=== PATIENT | male | born 1965 | race Caucasian/White ===

== ENCOUNTER 2017-11-13 08:35 | Observation (INO) | payer MEDICAID, SELFPAY ==
[2017-11-13] VITALS (10 sets, daily range): BP systolic 93–115; BP diastolic 51–78; PULSE 71–93; RESP 12–18; TEMP 36.4–36.6; O2SAT 96–99; BMI 20.6; BMI 20.4
--- NOTE | 2017-11-13 08:44 | EKG12_ITS ---
Test Reason : GEN ILLNESS Blood Pressure : / mmHG Vent. Rate : 079 BPM Atrial Rate : 079 BPM P-R Int : 164 ms QRS Dur : 092 ms QT Int : 388 ms P-R-T Axes : 053 -52 049 degrees QTc Int : 444 ms Normal sinus rhythm Left anterior fascicular block Abnormal ECG Confirmed by ERVIN THEODORE, DELVIN ([id number]), loan expeditor JOELLE GUERRA ([id number]) on 11/16/2017 2:45:47 PM Referred By: APPLE Confirmed By:DELVIN MUELLER MD
--- NOTE | 2017-11-13 08:45 | RAD_ITS ---
STUDY: X-RAY CHEST REASON FOR EXAM: Male, 51 years old. Focus of breath. Unexplained weight loss. Diarrhea. TECHNIQUE: PA and lateral views of the chest. COMPARISON: None. FINDINGS: EKG electrodes are seen. Hyperinflation. The lungs are clear. There is no demonstrated pleural abnormality. Normal size heart. Normal mediastinum and riddhi. Normal visualized pulmonary arteries. Normal visualized aortic arch and descending thoracic aorta. There are mild degenerative changes of the visualized thoracic spine. Normal visualized ribs, clavicles, and shoulders. There is no demonstrated abnormality of the visualized soft tissue structures of the upper abdomen. RAD/Chest PA and Lateral IMPRESSION: Hyperinflation. Electronically Signed: Sea Brush MD at 9:26 EST Tel [phone], Service support ,
--- NOTE | 2017-11-13 08:50 | NURSING ---
NO OLD EKGS
--- NOTE | 2017-11-13 08:54 | ED.DCSUM_ITS ---
- ER Visit Summary Date of Service: 11/13/17 Chief Complaint: Dyspnea with activity and diarrhea with 11 pound weight loss History of Present Illness: The patient is a 51 M who has a past medical history of diabetes for 5-6 years and quit smoking 1 month ago. He started smoking at the age of 21. He smoked 1 pack per day. He reports shortness of breath with activity. Upon further questioning was determined he has midsternal chest pressure with radiation at times the right shoulder at times of both shoulders at times to the left shoulder. This is with activity at work. He does become short of breath. A couple of minutes after he stops the activity his chest pressure is gone and his dyspnea resolved. He denies nausea or vomiting with the chest discomfort or associated with the diarrhea. He has not seen a doctor in quite some time. He was prescribed metformin last ER visit. He is no longer on insulin. He has not checked his blood sugar in several days. He also complains of diarrhea that started 3 days ago. On the first day he had 12 loose stools and yesterday he had 8 loose stools with mucus no blood. Today he is only had one bowel movement. He has no history of inflammatory bowel disorder and there is no family history of inflammatory bowel disorder. He denies any exposure to any one ill with GI symptoms. He does report dry mouth, thirst and lightheadedness. He does report decreased urine output. He reports an 11 pound weight loss. He states his clothes are loose on him. He denies fever, chills night sweats. He denies any ocular, visual or auditory symptoms. He denies any myalgias arthralgias. He denies any skin lesion. He denies history of bruising easily or rash. He gives no immunologic symptoms. He denies headache, paresthesia, anesthesia, motor weakness or problems with balance. Physical Examination: Vital signs are unremarkable. He is a thin appearing gentleman. Head is atraumatic normocephalic. Pupils are equal round reactive. Extraocular muscles are intact. TMs are pearly white with landmarks noted. Nares patent with no drainage. Posterior pharynx without erythema or exudate. Uvula is midline. There is no dysphonia or dysphasia. Trachea is midline. There is no stridor with auscultation of the neck. Heart is regular without murmur, gallop or rub. S1 and S2 are normal. Lungs are clear to auscultation with good movement of air bilaterally. Abdomen is soft scaphoid nontender with diminished bowel sounds. There is no asymmetry, swelling, discoloration, leg vein distention, palpable cords or tenderness along the distribution of the deep venous system. Patient is alert and oriented ?3. Motor is 5 over 5. Sensory is intact. DTRs are symmetric with no clonus or Babinski sign. Cranial 2 through 12 are intact. Cerebellar testing is normal. Test Results: KG without pain reveals a sinus rhythm rate of 79 and is essentially unremarkable. Chest x-ray is unremarkable. 2 views were obtained and interpreted by me. CBC is unremarkable. BMP is remarkable for slight elevation of glucose of 134. Troponin 0 0.03. Emergency Department Course and Treatment: Since patient has history of diabetes and smoking and describes exertional dyspnea and chest pain with referral to right shoulder as well as both shoulders cardiac workup was undertaken and included an EKG, chest x-ray and appropriate blood work. He did receive aspirin. In my professional medical opinion his GI symptoms have improved markedly and did not believe any further testing is warranted through the emergency department. Treatment Plan: Once labs are back will speak with cardiology since patient is describing exertional angina for the past 1-2 weeks and since he reports radiation to the right shoulder as well as both shoulders odds ratio for cardiac disease is 3-1 and 9-1 respectively. Based on karolina criteria patient has high likelihood for cardiac disease Disposition: As discussed with Dr. Whitman. The hospitalist has been paged. Impression: 1. Classic exertional midsternal chest pain 2. History of diabetes, hyperglycemia 3. Former tobacco use 4. Diarrhea with weight loss, acute This note was generated with [employer] software. It may contain incorrect words, spelling, and punctuation that were not noted in review of the chart prior to signing ED Disposition - Plan for ED Patient: Chief Complaint: General Illness Referrals: Care Physician,No Primary [Primary Care Provider] -
[2017-11-13] MEDS: Aspirin 81 MG TAB.CHEW 324 MG PO (09:06)
[2017-11-13 09:09] LABS: Absolute Lymphocyte Count 1.06 X10^3/ul (0.83-4.51); Absolute Neutrophil Count 5.7 X10^3/uL (2.0-7.7); Basophil# 0.02 X10^3/uL; Basophil% 0.3 % (0-1); Eosinophil# 0.15 X10^3/uL; Hematocrit 41.3 % (40-54); Hemoglobin 14.6 g/dl (13.0-16.5); Lymphocyte # 1.06 X10^3/ul (4.0); Mean Corp Hgb Conc 35.4 g/gl (32-36); Mean Corpuscular Hgb 30.7 pg (27.0-32.0); Mean Corpuscular Volume 86.8 fL (80-94); Mean Platelet Vol. 8.6 fl (6.2-12.0); Monocyte# 0.62 X10^3/uL; Monocyte% 8.2 % (0-10); Neutrophil # 5.72 X10^3/uL (2.7-7.7); Neutrophil % 75.4 % (47-70); Platelet Count 166 K/mm3 (150-450); RBC Distribution Width CV 12.4 % (11.6-14.6); RBC Distribution Width SD 39.3 fl (35.1-43.9); Red Blood Count 4.76 M/mm3 (4.6-6.2); White Blood Count 7.6 K/mm3 (4.4-11.0)
[2017-11-13 09:10] LABS: POSITIVE COUNT NO; POSITIVE DIFFERENTIAL NO; POSITIVE MORPHOLOGY NO
[2017-11-13 09:26] LABS: Anion Gap 7 (5-15); BUN 18 mg/dL (7-18); BUN/Creat Ratio 21.4 RATIO (10-20); Chloride 102 mmol/L (98-107); Creatinine, Serum 0.84 mg/dL (0.70-1.30); EST Glomerular Filtration Rate 102 mL/min (>60); Est Glom Filt Rate - Afr Amer 124 mL/min (>60); Estimated Creatinine Clearance 97.17 ml/min; Glucose 134 mg/dL (74-106); Sodium Level 137 mmol/L (136-145)
--- NOTE | 2017-11-13 09:28 | NURSING ---
DR PETERS IN WITH PATIENT
--- NOTE | 2017-11-13 11:09 | PCM.CONS.C ---
Problem List (1) Chest pain Status: Acute (2) Diabetes Status: Acute (3) Tobacco abuse Status: Acute Reason for Consult Date of Consultation: 11/13/17 Reason for Consultation: Chest pain, diabetes, tobacco abuse, History of Present Illness: The patient is a 51 year old M, with a history of diabetes, hypertension, unknown cholesterol on no current cholesterol medications, [id number] smoker who quit about 1 month ago, previous heavy drinker quit several months ago, who was normal health up until around Sunday when he went to [place] get[place] chicken and then subsequently developed copious amounts of frequent diarrhea over the last several days. 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 The pain radiated sometimes to his left shoulder and sometimes to bilateral shoulders. Patient continued to have copious amounts of diarrhea every few minutes, and sought medical attention at [facility] ER for lightheadedness and dizziness as well as his chest pain. Initial EKG showed normal sinus rhythm with low voltage in the limb leads, left axis deviation, no acute ST segment changes. His initial troponin was negative. Initially his blood pressure was 115/74, and heart rate was 80 and regular. 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 Initial troponin has been negative thus far. He is currently chest pain-free. He has no positive family history of premature coronary artery disease. Patient has never had a stress test or a heart catheterization. He denies any Viagra or Cialis, or illicit substances. [] Past Medical History Allergies/Adverse Reactions: Allergies bee venom protein (honey bee) Allergy (Verified 11/13/17 08:37) Hives Home Medications: Ambulatory Orders Medication Instructions Recorded NK [NK] 11/13/17 Surgical History: no surgical history Smoking Status: Former smoker Review of Systems - Review of Systems General: Reports: Fever, Weakness, Weight Loss. Denies: Fatigue, Night Sweats Cardiovascular: Reports: Chest Discomfort, Chest Discomfort with Exertion, Chest Tightness, Chest Heaviness, Shortness of Breath with Exertion. Denies: Shortness of Breath, Orthopnea, PND, Peripheral Edema, Palpitations, Lightheadedness, Dizziness, Near Syncope, Syncope Respiratory: Denies: Cough, Sputum Production, Hemoptysis Gastrointestinal: Reports: Diarrhea. Denies: Hematemesis, Hematochezia, Melena Genitourinary: Denies: Dysuria, Hematuria Skin: Denies: Rash Subjectve: Patient laying in bed, no acute distress. Objective: Vital Signs Temp Pulse Resp BP Pulse Ox 97.9 F 71 18 111/78 98 11/13/17 08:36 11/13/17 11:00 11/13/17 11:00 11/13/17 11:00 11/13/17 11:00 General: Awake, Alert, Oriented x 3 HEENT: PERRL, EOMI, Sclera Non Icteric Neck: Supple, Good ROM, No Lymph Node Enlargement Lungs: Clear to auscultation Cardiovascular: Regular Rhythm, Normal S1, Normal S2, No Murmurs, No Rubs, No Gallops Vascular: No Carotid Bruits, Normal Femoral Pulses, Normal Radial Pulses, Normal Dorsalis Pedal Pulse, Normal Posterior Tibial Pulses Abdomen: Bowel Sounds Present, Soft, Non Tender, No HSM, No Organomegaly Extremities: No Cyanosis, No Clubbing, No edema Neurological: No Focal Motor or Sensory Deficit Rhythm: EKG: As above ECHO: Pending Stress Test: Pending Cardiac Cath: PCI: CT Surgery: Holter monitor: EPS: PPM: CXR: Chest CT Scan: Assessment/Plan 1. Chest pain: Patient is chest pain is not reproducible and has several characteristics of classic anginal symptoms including its recent onset, exertional nature, radiation to his arms, and associated shortness of breath combined with the risk factors of diabetes, age, hypertension, and previous smoking. His initial troponin is negative and his EKG has no significant ST segment changes at this time. At this point I would recommend baby aspirin 81 mg daily, admit to telemetry, rule out for myocardial infarction with troponins every 4 hours ?3, and if negative would proceed with treadmill echocardiogram tomorrow morning. If his troponins are abnormal or if his stress test is abnormal, he will require a diagnostic coronary angiogram. This will need to be performed after his diarrhea has resolved. Would recommend obtaining Shigella, Salmonella fecal tox screens given the new onset diarrhea after going to a restaurant establishment. If the patient requires diagnostic coronary angiogram would recommend loading the patient with Plavix 3 mg ?1 followed by 75 mg a day. In addition recommend a 2D echo with Doppler to determine if the patient has any wall motion abnormalities or pulmonary hypertension. Once the patient has been fluid resuscitated would consider Lopressor 12.5 mg p.o. twice daily for heart rate and blood pressure control. 2. Hyperlipidemia: Recommend obtaining a fasting lipid profile. Given the patient's diabetes requires an LDL less than 70. 3. Thank you very much for the opportunity to participate in the cardiac care of your patient. Consultation time took place between 9 AM and 9:30 AM. Code Visit Inpatient E&M: 58965 Init Hosp L2
--- NOTE | 2017-11-13 11:21 | CON.PCM_ITS ---
Problem List (1) Chest pain Status: Acute (2) Diabetes Status: Acute (3) Tobacco abuse Status: Acute Reason for Consult Date of Consultation: 11/13/17 Reason for Consultation: Chest pain, diabetes, tobacco abuse, History of Present Illness: The patient is a 51 year old M, with a history of diabetes, hypertension, unknown cholesterol on no current cholesterol medications, [id number] smoker who quit about 1 month ago, previous heavy drinker quit several months ago, who was normal health up until around Sunday when he went to [place] [employer] and then subsequently developed copious amounts of frequent diarrhea over the last several days. 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 The pain radiated sometimes to his left shoulder and sometimes to bilateral shoulders. Patient continued to have copious amounts of diarrhea every few minutes, and sought medical attention at [facility] ER for lightheadedness and dizziness as well as his chest pain. Initial EKG showed normal sinus rhythm with low voltage in the limb leads, left axis deviation, no acute ST segment changes. His initial troponin was negative. Initially his blood pressure was 115/74, and heart rate was 80 and regular. 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 Initial troponin has been negative thus far. He is currently chest pain-free. He has no positive family history of premature coronary artery disease. Patient has never had a stress test or a heart catheterization. He denies any Viagra or Cialis, or illicit substances. [] Past Medical History Allergies/Adverse Reactions: Allergies bee venom protein (honey bee) Allergy (Verified 11/13/17 08:37) Hives Home Medications: Ambulatory Orders Medication Instructions Recorded NK [NK] 11/13/17 Surgical History: no surgical history Smoking Status: Former smoker Review of Systems - Review of Systems General: Reports: Fever, Weakness, Weight Loss. Denies: Fatigue, Night Sweats Cardiovascular: Reports: Chest Discomfort, Chest Discomfort with Exertion, Chest Tightness, Chest Heaviness, Shortness of Breath with Exertion. Denies: Shortness of Breath, Orthopnea, PND, Peripheral Edema, Palpitations, Lightheadedness, Dizziness, Near Syncope, Syncope Respiratory: Denies: Cough, Sputum Production, Hemoptysis Gastrointestinal: Reports: Diarrhea. Denies: Hematemesis, Hematochezia, Melena Genitourinary: Denies: Dysuria, Hematuria Skin: Denies: Rash Subjectve: Patient laying in bed, no acute distress. Objective: Vital Signs Temp Pulse Resp BP Pulse Ox 97.9 F 71 18 111/78 98 11/13/17 08:36 11/13/17 11:00 11/13/17 11:00 11/13/17 11:00 11/13/17 11:00 General: Awake, Alert, Oriented x 3 HEENT: PERRL, EOMI, Sclera Non Icteric Neck: Supple, Good ROM, No Lymph Node Enlargement Lungs: Clear to auscultation Cardiovascular: Regular Rhythm, Normal S1, Normal S2, No Murmurs, No Rubs, No Gallops Vascular: No Carotid Bruits, Normal Femoral Pulses, Normal Radial Pulses, Normal Dorsalis Pedal Pulse, Normal Posterior Tibial Pulses Abdomen: Bowel Sounds Present, Soft, Non Tender, No HSM, No Organomegaly Extremities: No Cyanosis, No Clubbing, No edema Neurological: No Focal Motor or Sensory Deficit Rhythm: EKG: As above ECHO: Pending Stress Test: Pending Cardiac Cath: PCI: CT Surgery: Holter monitor: EPS: PPM: CXR: Chest CT Scan: Assessment/Plan 1. Chest pain: Patient is chest pain is not reproducible and has several characteristics of classic anginal symptoms including its recent onset, exertional nature, radiation to his arms, and associated shortness of breath combined with the risk factors of diabetes, age, hypertension, and previous smoking. His initial troponin is negative and his EKG has no significant ST segment changes at this time. At this point I would recommend baby aspirin 81 mg daily, admit to telemetry, rule out for myocardial infarction with troponins every 4 hours ?3, and if negative would proceed with treadmill echocardiogram tomorrow morning. If his troponins are abnormal or if his stress test is abnormal, he will require a diagnostic coronary angiogram. This will need to be performed after his diarrhea has resolved. Would recommend obtaining Shigella, Salmonella fecal tox screens given the new onset diarrhea after going to a restaurant establishment. If the patient requires diagnostic coronary angiogram would recommend loading the patient with Plavix 3 mg ?1 followed by 75 mg a day. In addition recommend a 2D echo with Doppler to determine if the patient has any wall motion abnormalities or pulmonary hypertension. Once the patient has been fluid resuscitated would consider Lopressor 12.5 mg p.o. twice daily for heart rate and blood pressure control. 2. Hyperlipidemia: Recommend obtaining a fasting lipid profile. Given the patient's diabetes requires an LDL less than 70. 3. Thank you very much for the opportunity to participate in the cardiac care of your patient. Consultation time took place between 9 AM and 9:30 AM. Code Visit Inpatient E&M: 80937 Init Hosp L2
--- NOTE | 2017-11-13 12:50 | HP.PCM_ITS ---
Problem List (1) Chest pain Status: Acute (2) Diabetes Status: Acute (3) Tobacco abuse Status: Acute History of Present Illness Date of Admission: 11/13/17 Chief Complaint: Weakness, Diarrhea and Dyspnea The patient is a 51 year old M to the emergency room due to weakness, he has had profuse diarrhea last 3 days. He thought that he had the flu and decided to come to the emergency room. He denies any nasal congestion, rhinorrhea , cough, fever or chills. He reports exertional dyspnea and chest discomfort while he was at work. He was evaluated in the emergency room and admitted to PCU for his concerning cardiac symptoms. When I saw him ,he was alert and oriented to time place and person, he denied any chest pain , shortness of breath or palpitations at rest. Past Medical History Allergies bee venom protein (honey bee) Allergy (Verified 11/13/17 08:37) Hives Home Medications: Ambulatory Orders Medication Instructions Recorded NK [NK] 11/13/17 Surgical History: no surgical history Smoking Status: Former smoker - *Family History Maternal History Items: No pertinent history Review of Systems Comment: All Systems were reviewed with pertinent positives mentioned in the HPI above. VTE Information - Inpt Only VTE Present on Admission: No VTE Mechan Device Prophylaxis: SCD's VTE Pharm Prophylaxis ordered?: No Patient Problems: Active and Suspected Problems Chest pain (Acute) Diabetes (Acute) Tobacco abuse (Acute) - Physical Exam General: Alert, Oriented x3 Neck: Supple, No JVD Lungs: Clear to auscultation Cardiovascular: Regular rate, Normal S1, Normal S2, No murmurs, No Ectopic Activity Abdomen: Bowel Sounds Present, Soft, Non Tender, Non-Distended Vital Signs Temp Pulse Resp BP Pulse Ox 97.5 F L 75 12 107/69 99 11/13/17 11:40 11/13/17 11:40 11/13/17 11:40 11/13/17 11:40 11/13/17 11:40 Oxygen Delivery Method Room Air Weight: 64.6 kg Body Mass Index (BMI) 20.4 Assessment/Plan Active and Suspected Problems Chest pain (Acute) Diabetes (Acute) Tobacco abuse (Acute) 1. Chest pain and exertional dyspnea; he has been seen by cardiology and stress echocardiogram ordered for tomorrow. Continue to check serial cardiac enzymes. 2. Diarrhea; We will obtain stool for C. difficile 3. Dehydration secondary to #2; we will place him on on gentle hydration with 0.9NS. 4. DVT prophylaxis with Lovenox. Code Visit Inpatient E&M: 55947 Subs Hosp L2 OBSV E&M: 72457 Initial observation care L3
[2017-11-13 13:06] LABS: Magnesium 2.1 mg/dL (1.6-2.6)
[2017-11-13] MEDS: 0.9% Normal Saline 1,000 ML 75 ML IV (15:13)
[2017-11-13] MEDS: 0.9% NaCl Peripheral Flush Adult/Peds IV (15:14)
[2017-11-13] MEDS: Glucerna Shake 120 ML LIQUID PO ×2 (17:32→21:45)
[2017-11-14] VITALS (8 sets, daily range): BP systolic 96–108; BP diastolic 64–68; PULSE 66–87; RESP 16–18; TEMP 36.6–37.1; O2SAT 96–99
[2017-11-14] MEDS: 0.9% Normal Saline 1,000 ML 75 ML IV ×2 (04:31→21:32)
[2017-11-14 05:33] LABS: International Normalized Ratio 1.1; Prothrombin Time (Protime)PT. 14.1 SECONDS (11.7-14.9)
[2017-11-14 05:34] LABS: Partial Thromboplast Time 31.3 Seconds (24.1-36.2)
[2017-11-14 05:35] LABS: Absolute Lymphocyte Count 1.67 X10^3/ul (0.83-4.51); Absolute Neutrophil Count 3.3 X10^3/uL (2.0-7.7); Basophil# 0.02 X10^3/uL; Basophil% 0.3 % (0-1); Eosinophil# 0.27 X10^3/uL; Eosinophils% 4.4 % (0-5); Hematocrit 35.8 % (40-54); Hemoglobin 12.7 g/dl (13.0-16.5); Lymphocyte # 1.67 X10^3/ul (4.0); Lymphocyte % 27.4 % (19-41); Mean Corp Hgb Conc 35.5 g/gl (32-36); Mean Corpuscular Hgb 30.7 pg (27.0-32.0); Mean Corpuscular Volume 86.5 fL (80-94); Mean Platelet Vol. 8.8 fl (6.2-12.0); Monocyte# 0.83 X10^3/uL; Monocyte% 13.6 % (0-10); Neutrophil % 54.3 % (47-70); POSITIVE COUNT NO; POSITIVE DIFFERENTIAL NO; POSITIVE MORPHOLOGY NO; Platelet Count 162 K/mm3 (150-450); RBC Distribution Width CV 12.3 % (11.6-14.6); RBC Distribution Width SD 37.7 fl (35.1-43.9); Red Blood Count 4.14 M/mm3 (4.6-6.2); White Blood Count 6.1 K/mm3 (4.4-11.0)
[2017-11-14 05:41] LABS: BUN 16 mg/dL (7-18); BUN/Creat Ratio 27.6 RATIO (10-20); Calcium,Total 8.3 mg/dL (8.5-10.1); Chloride 106 mmol/L (98-107); Cholesterol 82 mg/dL (200); Creatinine, Serum 0.58 mg/dL (0.70-1.30); EST Glomerular Filtration Rate 157 mL/min (>60); Est Glom Filt Rate - Afr Amer 190 mL/min (>60); Estimated Creatinine Clearance 139.22 ml/min; Glucose 125 mg/dL (74-106); Potassium 3.9 mmol/L (3.5-5.1); Sodium Level 141 mmol/L (136-145); Triglycerides 92 mg/dL
[2017-11-14 05:42] LABS: Anion Gap 9 (5-15); High Density Lipoprotein 39 mg/dL; Very Low Density Lipoprotein 18 mg/dL (5-40)
--- NOTE | 2017-11-14 05:55 | STEWCON_ITS ---
Reason For Study: CHEST PAIN Stress Results Protocol: Robert Protocol Maximum Predicted HR: 170 bpm Target HR: 145 bpm% Max imum Predicted HR: 90 % DurationHeart Rate Stage (mm:ss) (bpm) BP BASELINE 76 110/78 STAGE 1 3:00 10 8 110/60 STAGE 2 3:00 11 8 114/60 STAGE 3 3:00 12 6 122/64 STAGE 4 2:00 15 3 / RECOVERY 105 110/6 6 Stress Duration: 11:00 mm:ss Maximum Stress HR: 153 bpm Baseline Echocardiogram Findings The estimated ejection fraction is 65 %. Stress Echo Wall motion Data Resting WMIntermediate WMStress WM Resting Wall Motion Wall Motion Stress No regional wall motion No regional wall motion abnormalities noted. abnormalities noted. EKG Data Normal intervals are noted. The patient exercised according to the regular Robert protocol for a total duration of 11:00. The maximum heart rate attained was 166 beats per minute. This was 97% of maximum predicted heart rate. The patient exercised into stage 4 of the Robert protocol. During stress, there were no ST or T wave changes noted to suggest ischemia. No clinical angina was noted. No arrhythmias noted. Interpretation Summary The estimated ejection fraction is 65 %. Normal adequate treadmill echocardiogram. Negative for ischemia by EKG and echocardiographic criteria. No anginal symptoms noted. No arrhythmias noted. Appropriate blood pressure response to exercise. Average exercise capacity for age. Test terminated due to fatigue, dyspnea and target heart rate achieved. Final LVEF is 75%. Patient tolerated procedure well. No complications. Ordering Physician: Te Whitman Performed By: Toyin Navarro, GONZÁLEZ, RVT
--- NOTE | 2017-11-14 05:55 | EKG12_ITS ---
Test Reason : AM EKG Blood Pressure : / mmHG Vent. Rate : 071 BPM Atrial Rate : 071 BPM P-R Int : 198 ms QRS Dur : 102 ms QT Int : 418 ms P-R-T Axes : 056 -19 064 degrees QTc Int : 454 ms Normal sinus rhythm Normal ECG When compared with ECG of 13-NOV-2017 08:55, MANUAL COMPARISON REQUIRED, DATA IS UNCONFIRMED Confirmed by ERVIN THEODORE, DELVIN ([id number]), assistant film editor JOELLE GUERRA ([id number]) on 11/16/2017 3:16:01 PM Referred By: SUPA Confirmed By:DELVIN MUELLER MD
[2017-11-14] MEDS: Aspirin 81 MG TAB.CHEW PO (06:07)
--- NOTE | 2017-11-14 08:54 | PCM.PN.CARD ---
Subjectve: Patient doing better this morning, diarrhea has ceased, no chest pain symptoms. Troponins negative ?3. EKG this morning is unchanged from baseline. Telemetry negative. Objective: Vital Signs Temp Pulse Resp BP Pulse Ox 97.9 F 77 18 106/66 96 11/14/17 08:27 11/14/17 08:27 11/14/17 08:27 11/14/17 08:27 11/14/17 08:27 Oxygen Delivery Method Room Air Weight: 142 lb 6.698 oz Body Mass Index (BMI) 20.4 Intake and Output for Last 24 Hours 11/12/17 11/13/17 11/14/17 23:59 23:59 23:59 Intake Total 1020 / 1020 466 / 466 Balance 1020 / 1020 466 / 466 General: Awake, Alert, Oriented x 3 HEENT: PERRL, EOMI, Sclera Non Icteric Neck: Supple, Good ROM, No Lymph Node Enlargement Lungs: Clear to auscultation Cardiovascular: Regular Rhythm, Normal S1, Normal S2, No Murmurs, No Rubs, No Gallops Vascular: No Carotid Bruits, Normal Femoral Pulses, Normal Radial Pulses, Normal Dorsalis Pedal Pulse, Normal Posterior Tibial Pulses Abdomen: Bowel Sounds Present, Soft, Non Tender, No HSM, No Organomegaly Extremities: No Cyanosis, No Clubbing, No edema Neurological: No Focal Motor or Sensory Deficit 11/13/17 13:10: Troponin I < 0.02 11/13/17 17:00: Troponin I < 0.02 11/13/17 23:17: Troponin I < 0.02 11/14/17 05:08: Sodium 141, Potassium 3.9, Chloride 106, Carbon Dioxide 26.0, Anion Gap 9, BUN 16, Creatinine 0.58 L, Est GFR (MDRD) Af Amer 190, Est GFR (MDRD) Non-Af 157, BUN/Creatinine Ratio 27.6 H, Glucose 125 H, Calcium 8.3 L, Triglycerides 92, Cholesterol 82, LDL Cholesterol 25, VLDL Cholesterol 18, HDL Cholesterol 39 L 11/14/17 05:08: WBC 6.1, RBC 4.14 L, Hgb 12.7 L, Hct 35.8 L, MCV 86.5, MCH 30.7, MCHC 35.5, RDW 12.3, RDW Differential 37.7, Plt Count 162, MPV 8.8, Immature Gran % (Auto) 0.000, Neut % (Auto) 54.3, Lymph % (Auto) 27.4, [place] % (Auto) 13.6 H, Eos % (Auto) 4.4, Baso % (Auto) 0.3, Absolute Neuts (auto) 3.3, Total Counted Not Reportable 11/14/17 05:08: PT 14.1, INR 1.1, APTT 31.3 Rhythm: EKG: ECHO: Stress Test: Pending Cardiac Cath: PCI: CT Surgery: Holter monitor: EPS: PPM: CXR: Chest CT Scan: Assessment/Plan 1. Chest pain: Patient is chest pain is not reproducible and has several characteristics of classic anginal symptoms including its recent onset, exertional nature, radiation to his arms, and associated shortness of breath combined with the risk factors of diabetes, age, hypertension, and previous smoking. His initial troponin is negative and his EKG has no significant ST segment changes at this time. Patient's troponin has been negative thus far, and he will proceed with stress echocardiogram this morning assuming he is cleared from a contact precaution standpoint. If his stress test is grossly abnormal, would recommend a diagnostic coronary angiogram. If his stress test is normal, he will proceed with medical management going forward. If the patient requires diagnostic coronary angiogram would recommend loading the patient with Plavix 3 mg ?1 followed by 75 mg a day. In addition recommend a 2D echo with Doppler to determine if the patient has any wall motion abnormalities or pulmonary hypertension. Patient is a major concern about his most recent acute weight loss over the last several weeks to months, would recommend GI consultation, and checking TSH and T4 to rule out hypothyroidism. 2. Hyperlipidemia: Given the patient's diabetes requires an LDL less than 70. LDL is 25 HDL 39. 3. Thank you very much for the opportunity to participate in the cardiac care of your patient. Code Visit Inpatient E&M: 95533 Subs Hosp L2
[2017-11-14 09:36] LABS: Thyroid Stim Hormone (TSH) 2.43 uIU/mL (0.358-3.74)
--- NOTE | 2017-11-14 11:17 | CASEMGMT ---
Patient is showing up as self pay. MARIE met with patient, introduced self and role at [facility]. Patient said has insurance. MARIE told him his Medicaid is showing up as inactive currently. MARIE gave him the phone number to [employer] [facility] [employer] [facility]. MARIE told him that it could be something as simple as they need some updated information. He thanked MARIE for this information. Rachna HOWARD MSW
--- NOTE | 2017-11-14 11:32 | PN_ITS ---
Patient Problems: Active and Suspected Problems Chest pain (Acute) Diabetes (Acute) Tobacco abuse (Acute) Subjective: CC: Diarrhea, weakness and chest pain He has had profuse diarrhea today, he reports no abdominal pain , fever or chills. His C. difficile status is negative. Stress test today is negative for ischemia. Vitals/I&O's: Vital Signs Temp Pulse Resp BP Pulse Ox 97.9 F 77 18 106/66 96 11/14/17 08:27 11/14/17 08:27 11/14/17 08:27 11/14/17 08:27 11/14/17 08:27 Oxygen Delivery Method Room Air Weight: 64.6 kg Body Mass Index (BMI) 20.4 Intake and Output for Last 24 Hours 11/12/17 11/13/17 11/14/17 23:59 23:59 23:59 Intake Total 1020 / 1020 466 / 466 Balance 1020 / 1020 466 / 466 General: Alert, Oriented x3 Oral: Moist Mucosa Neck: Supple Lungs: Clear to auscultation Cardiovascular: Regular rate, Normal S1, Normal S2 Abdomen: Bowel Sounds Present, Non Tender, Non-Distended Extremities: No edema Neurological: Cranial nerves II-XII grossly intact, Motor Exam 5/5 strength throughout Microbiology Past 72 Hours 11/14/17 10:17 Stool Stool Lactoferrin - Final Laboratory Results 11/13/17 13:10: Troponin I < 0.02 11/13/17 17:00: Troponin I < 0.02 11/13/17 23:17: Troponin I < 0.02 11/14/17 05:08: Sodium 141, Potassium 3.9, Chloride 106, Carbon Dioxide 26.0, Anion Gap 9, BUN 16, Creatinine 0.58 L, Estim Creat Clear Calc 139.22, Est GFR ( MDRD) Af Amer 190, Est GFR (MDRD) Non-Af 157, BUN/Creatinine Ratio 27.6 H, Glucose 125 H, Calcium 8.3 L, Triglycerides 92, Cholesterol 82, LDL Cholesterol 25, VLDL Cholesterol 18, HDL Cholesterol 39 L 11/14/17 05:08: WBC 6.1, RBC 4.14 L, Hgb 12.7 L, Hct 35.8 L, MCV 86.5, MCH 30.7 , MCHC 35.5, RDW 12.3, RDW Differential 37.7, Plt Count 162, MPV 8.8, Immature Gran % (Auto) 0.000, Neut % (Auto) 54.3, Lymph % (Auto) 27.4, [place] % (Auto) 13.6 H, Eos % (Auto) 4.4, Baso % (Auto) 0.3, Absolute Neuts (auto) 3.3, Absolute Lymphs (auto) 1.67, Total Counted Not Reportable 11/14/17 05:08: PT 14.1, INR 1.1, APTT 31.3 11/14/17 05:08: TSH 2.43, Free T4 1.00 Current Medications Aspirin (Aspirin, Baby) 81 mg PO DAILY@0800 [facility] Last Admin: 11/14/17 06:07 Dose: 81 mg Sodium Chloride () 1,000 mls @ 75 mls/hr IV .[id number] [facility] Last Admin: 11/14/17 04:31 Dose: 75 mls/hr Nutritional Formula (Lactose Free) (Glucerna Shake) 120 ml PO 4X/DAY [facility] Last Admin: 11/14/17 10:05 Dose: Not Given Sodium Chloride () 5 - 30 ml IV UD PRN PRN Reason: SALINE FLUSH Last Admin: 11/13/17 15:14 Dose: 5 ml Assessment/Plan Active and Suspected Problems Chest pain (Acute) Diabetes (Acute) Tobacco abuse (Acute) 1. Chest pain and exertional dyspnea; this is negative for ischemia. 2. Persistent Diarrhea; stool for C. difficile is negative, 3. Weight loss; given his unexplained diarrhea we will obtain CT scan of the abdomen and pelvis. 4. Dehydration secondary to #2; we will continue on gentle hydration with 0.9NS. 5. DVT prophylaxis with Lovenox. Code Visit OBSV E&M: 12710 Subsequent observation care L3
--- NOTE | 2017-11-14 14:55 | NURSING ---
1430- updated [place] fisheries manager and Charge Nurse Natalie COOK regarding pt stating he feels like he is being poisoned and that when he eats he feels as if his finger and toe tips are going to blow off.
--- NOTE | 2017-11-14 15:33 | CASEMGMT ---
SW spoke with patient again as he does not have a primary care doctor. He was not able to make contact with [employer] [facility] [employer] [facility]. He said he is from [facility]. MARIE told him MARIE will try and call them to see what happened with his Medicaid. MARIE called [facility] in [place] and had to leave a voice mail. Rachna HOWARD MSW
--- NOTE | 2017-11-14 15:50 | CT_ITS ---
STUDY: CT ABDOMEN AND PELVIS WITH CONTRAST REASON FOR EXAM: Male, 51 years old. Weakness, diarrhea, large weight loss in 6 months. RADIATION DOSAGE (If Supplied By Facility): CTDIvol = ( 13.31 ) mGy, DLP = ( 531.59 ) mGycm TECHNIQUE: Transaxial images were obtained from the dome of the diaphragm to the symphysis pubis without oral contrast. 100mL ml of Isovue 300 contrast was administered. Sagittal and coronal images were reconstructed. Individualized dose optimization techniques were used for this CT. COMPARISON: None. FINDINGS: The visualized lung bases are unremarkable. The visualized portions of the heart are within normal limits. There is mild hepatomegaly, the right lobe measuring 20.5 cm in height. The patent portal vein diameter is 18.5 mm. Normal gallbladder and extrahepatic biliary system. Extra hepatic bile duct is 8 mm diameter, then tapering sharply in the mid pancreatic head. Normal spleen. Normal size and contour of the pancreas. The pancreatic duct is borderline ectatic. Normal bilateral adrenal glands. Normal right kidney. Well-defined 1.55 x 1.4 x 1.6 cm cortical cyst in the medial upper pole of the left kidney. No hydronephrosis. Normal visualized stomach. Normal small intestine. Normal colon. There is non-visualization of the appendix. There is mild atherosclerotic calcification of the distal abdominal aorta and proximal iliac arteries, without a demonstrated aneurysm. Normal inferior vena cava. Normal retroperitoneum. Normal urinary bladder. Normal visualized prostate gland. There is a right-sided inguinal hernia containing adipose tissue as well as stranding connective soft tissue or edema. There is a left-sided inguinal hernia containing adipose tissue. There are degenerative changes of the lower lumbar spine. Thin linear lucency in the left L5 pars interarticularis on series 602 image 85 is likely a vascular groove. CT/Abdomen/Pelvis W IV Cont ONLY IMPRESSION: 1. The bowel is unremarkable without sign of obstruction or mass. The appendix is not visualized. 2. Mild hepatomegaly. 3. 1.6 cm left renal cortical cyst. No hydronephrosis. 4. Bilateral fat-containing inguinal hernias, with some additional stranding edema or connective soft tissue in the hernia on the right. Electronically Signed: Lamine Barraza MD at 17:46 EST , Service support ,
[2017-11-14] MEDS: Glucerna Shake 120 ML LIQUID PO (21:33)
[2017-11-15 01:56] VITALS: BP 111/63; PULSE 68; RESP 16; TEMP 36.9; O2SAT 95
[2017-11-15 06:33] VITALS: BP 102/67; PULSE 78; RESP 16; TEMP 36.8; O2SAT 98
[2017-11-15] MEDS: Glucerna Shake 120 ML LIQUID PO (08:32)
[2017-11-15] MEDS: Aspirin 81 MG TAB.CHEW PO (08:32)
[2017-11-15] MEDS: 0.9% Normal Saline 1,000 ML 75 ML IV (08:34)
[2017-11-15 08:35] VITALS: BP 113/70; PULSE 73; RESP 16; TEMP 36.8; O2SAT 98
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
--- NOTE | 2017-11-15 09:41 | PCM.DC ---
- Discharge Diagnoses Current Active Problems: Current Active and Chronic Problems Chest pain (Acute) Diabetes (Acute) Tobacco abuse (Acute) You will use the following diet at home:: No restrictions, Regular Discharge Activity: Return to Normal Activity Instructions: ED Chest Pain NonCardiac Allergies/Adverse Reactions: Allergies bee venom protein (honey bee) Allergy (Verified 11/13/17 08:37) Hives Medications to take at Discharge Aspirin [Aspirin, Baby] 81 mg PO DAILY@0800 tab.chew 11/15/17 Loperamide [Imodium] 2 mg PO Q2H PRN PRN #20 cap 11/15/17 The following prescriptions were given: Loperamide [Imodium] 2 mg PO Q2H PRN PRN #20 cap PRN Reason: Diarrhea Primary Care Physician: Care Physician,No Primary [Primary Care Provider] - Within 2 Weeks Proposed Discharge Date: 11/15/17
--- NOTE | 2017-11-15 09:43 | PCM.DC.SUM ---
Discharge Date and Diagnosis Date of Admission: 11/13/17 Date of Discharge: 11/15/17 - Primary Discharge Diagnosis Active and Suspected Problems Chest pain (Acute) Diabetes (Acute) Tobacco abuse (Acute) Hospital Course and Treatment Summary of Care Provided: The patient is a 51 year old M to the emergency room due to weakness, he has had profuse diarrhea last 3 days. He thought that he had the flu and decided to come to the emergency room. He denies any nasal congestion, rhinorrhea ,cough, fever or chills. He reports exertional dyspnea and chest discomfort while he was at work. He was evaluated in the emergency room and admitted to PCU for his concerning cardiac symptoms. The patient was placed in PCU and underwent a stress test that was negative for ischemia. Regarding her diarrhea, his stool studies was negative for C. difficile or any other infectious process. CT scan of the abdomen and pelvis did not show any thing to explain her diarrhea. She reported weight loss and we did recommend he establishes with the primary care doctor and referred to a optical engineering technician for surgery to undergo colonoscopy, patient verbalized understanding and stated he will follow-up with the primary care physician and for colonoscopy to be arranged. Discharge Diet: No Restrictions Discharge Activity: Return to Normal Activity Home Medications: Medications to take at Discharge Aspirin [Aspirin, Baby] 81 mg PO DAILY@0800 tab.chew 11/15/17 Loperamide [Imodium] 2 mg PO Q2H PRN PRN #20 cap 11/15/17 Following Prescrptions Were Given to Patient: Loperamide [Imodium] 2 mg PO Q2H PRN PRN #20 cap PRN Reason: Diarrhea Primary Care Physician: Care Physician,No Primary [Primary Care Provider] - Within 2 Weeks Patient Instructions: ED Chest Pain NonCardiac Disposition: Home Patient Condition:: Good Meaningful Use Info Meaningful Use Diagnoses (Choose all that apply): None applicable Code Visit OBSV E&M: 70789 Observation care discharge
--- NOTE | 2017-11-15 09:50 | PCM.PN.CARD ---
Subjectve: Patient doing well this morning, no further chest pain. Stress echo negative yesterday. Still continues to have copious amounts of diarrhea. Stool O&P pending. Objective: Vital Signs Temp Pulse Resp BP Pulse Ox 98.3 F 73 16 113/70 98 11/15/17 08:35 11/15/17 08:35 11/15/17 08:35 11/15/17 08:35 11/15/17 08:35 Oxygen Delivery Method Room Air Weight: 142 lb 6.698 oz Body Mass Index (BMI) 20.4 Intake and Output for Last 24 Hours 11/13/17 11/14/17 11/15/17 23:59 23:59 23:59 Intake Total 1020 / 1020 1694 / 1694 770 / 770 Balance 1020 / 1020 1694 / 1694 770 / 770 General: Awake, Alert, Oriented x 3 HEENT: PERRL, EOMI, Sclera Non Icteric Neck: Supple, Good ROM, No Lymph Node Enlargement Lungs: Clear to auscultation Cardiovascular: Regular Rhythm, Normal S1, Normal S2, No Murmurs, No Rubs, No Gallops Vascular: No Carotid Bruits, Normal Femoral Pulses, Normal Radial Pulses, Normal Dorsalis Pedal Pulse, Normal Posterior Tibial Pulses Abdomen: Bowel Sounds Present, Soft, Non Tender, No HSM, No Organomegaly Extremities: No Cyanosis, No Clubbing, No edema Neurological: No Focal Motor or Sensory Deficit Rhythm: EKG: ECHO: Stress Test: Negative for inducible ischemia. Cardiac Cath: PCI: CT Surgery: Holter monitor: EPS: PPM: CXR: Chest CT Scan: Assessment/Plan 1. Chest pain: Patient is chest pain is not reproducible and has several characteristics of classic anginal symptoms including its recent onset, exertional nature, radiation to his arms, and associated shortness of breath combined with the risk factors of diabetes, age, hypertension, and previous smoking. His initial troponin is negative and his EKG has no significant ST segment changes at the time of admission. Patient ruled out for myocardial infarction and stress echocardiogram was negative for inducible ischemia. No indication for catheterization at this time. No further anginal symptoms. Patient continues to have copious amounts of diarrhea would recommend a GI consultation for possible new diagnosis of colitis or Crohn's disease. According to the patient has had no significant blood in his stool. Infectious stool O&P results are pending. 2. Hyperlipidemia: Given the patient's diabetes requires an LDL less than 70. LDL is 25 HDL 39. 3. Thank you very much for the opportunity to participate in the cardiac care of your patient. We will sign off. Please call with any questions. Code Visit Inpatient E&M: 66597 Subs Hosp L2
== END 2017-11-15 09:42 | disposition home or self-care (01) ==
LOC: ED 08:56 → PCU 10:39
PROVIDERS: Internal Medicine Cardiovascular Disease; Admitting Provider Internal Medicine; Emergency Provider Emergency Medicine; Visit Provider Internal Medicine
DX: R07.89 Other chest pain (principal); E11.9 Type 2 diabetes mellitus without complications; I10 Essential (primary) hypertension; E78.5 Hyperlipidemia, unspecified; R06.02 Shortness of breath; R42 Dizziness and giddiness; R19.7 Diarrhea, unspecified; E86.0 Dehydration; Z87.891 Personal history of nicotine dependence; Z82.49 Family history of ischemic heart disease and other diseases of the circulatory system
CPT/HCPCS: 36415; 71046; 74177; 80048; 80061; 83630; 83735; 84439; 84443; 84484; 85025; 85610; 85730; 87177; 87209; 87493; 87506; 93005; 93017; 93306; 93350; 96360; 96361; 97802; 99218; 99285; 99406; J7030; Q9957; Q9967; A4216; C8928; G0378